=== PATIENT | male | born 1970 | race Caucasian/White ===

== ENCOUNTER → 2016-12-29 | Outpatient (CLI) | payer BC, OTHER | END | disposition home or self-care (01) | LOC: PETCFH 08:30 | PROVIDERS: ATTEND Internal Medicine | DX: R14.0 Abdominal distension (gaseous) (principal); R10.9 Unspecified abdominal pain | CPT/HCPCS: 78264; A9541 ==

== ENCOUNTER 2018-02-11 14:39 | Emergency (ER) | payer OTHER ==
[~2018-02-11] VITALS: Ht 170.2 cm; Wt 115.0 kg
[2018-02-11 14:57] VITALS: BP 146/94
[2018-02-11] MEDS ORDERED: METHOCARBAMOL 750 MG TABLET ONE (16:24)
[2018-02-11] MEDS ORDERED: KETOROLAC 30 MG/1 ML ONE (16:24)
[2018-02-11] MEDS ORDERED: METHOCARBAMOL 750 MG TABLET PO ONE (16:30)
[2018-02-11] MEDS ORDERED: KETOROLAC 30 MG/1 ML IM ONE (16:30)
== END 2018-02-11 17:15 | disposition home or self-care (01) ==
LOC: ED 16:45
DX: S13.4XXA Sprain of ligaments of cervical spine, initial encounter (principal); S23.3XXA Sprain of ligaments of thoracic spine, initial encounter; V12.4XXA Pedal cycle driver injured in collision with two- or three-wheeled motor vehicle in traffic accident, initial encounter; Y93.55 Activity, bike riding; Y92.89 Other specified places as the place of occurrence of the external cause; Y99.8 Other external cause status
CPT/HCPCS: 72050; 72072; 73030; 96372; 99284; J1885

== ENCOUNTER 2018-08-07 13:27 | Inpatient (IN) | payer OTHER ==
[~2018-08-07] VITALS: Ht 170.2 cm; Wt 106.3 kg
[2018-08-07 14:36] LABS: MEAN CORPUSCULAR HEMOGLOBIN 30.7 pg (27.5-34.5); MEAN CORPUSCULAR HGB CONC 33.5 g/dL (33.2-36.2); MEAN CORPUSCULAR VOLUME 91.8 fL (81-97); MEAN PLATELET VOLUME 9.7 fL (7.4-10.4); PLATELET COUNT 217 x10^3/uL (130-400); RED BLOOD COUNT 5.46 x10^6/uL (4.38-5.82); RED CELL DISTRIBUTION WIDTH 14.3 % (9.4-14.8)
[2018-08-07 14:46] LABS: ALBUMIN 3.3 g/dL (3.4-5.0); ANION GAP 4 mmol/L (5-15); CALCIUM 8.9 mg/dL (8.5-10.1); CHLORIDE 101 mmol/L (98-107)
[2018-08-07 14:48] LABS: ALANINE AMINOTRANSFERASE 25 U/L (12-78); ALKALINE PHOSPHATASE 95 U/L (45-117); CREATININE 1.32 mg/dL (0.7-1.3); TOTAL PROTEIN 8.3 g/dL (6.4-8.2)
[2018-08-07 15:05] LABS: BASOPHILS # (AUTO) 0.17 x10^3/uL (0-0.1); BASOPHILS % (AUTO) 1 % (0-1); EOSINOPHILS # (AUTO) 0.17 x10^3/uL (0-0.4); EOSINOPHILS % (AUTO) 1 % (1-7); LYMPHOCYTES # (AUTO) 2.06 x10^3/uL (1-3.4); LYMPHOCYTES % (AUTO) 10 % (22-44); MD SCAN; MONOCYTES # (AUTO) 1.32 x10^3/uL (0.2-0.8); MONOCYTES % (AUTO) 7 % (2-9); NEUTROPHILS # (AUTO) 16.45 x10^3/uL (1.8-6.8); NEUTROPHILS % (AUTO) 82 % (42-75)
[2018-08-07] MEDS ORDERED: SODIUM CHLORIDE FLUSH 10ML SYR IVF ONE (16:30)
--- NOTE | 2018-08-07 16:30 | NUR ---
patient is having really bad abdominal pain since sunday including nausea and vomiting. he has no history of this. he states the pain is left and right lower abdomen
[2018-08-07] MEDS ORDERED: OMNIPAQUE 350 MG/ML, 100ML BOTTLE ONE (17:05)
--- NOTE | 2018-08-07 17:06 | NUR ---
patient in ct scan.
--- NOTE | 2018-08-07 17:30 | NUR ---
patient awaiting er workup
--- NOTE | 2018-08-07 17:41 | NUR ---
patient pain is the same. patient in bed on monitor, awaiting ed workup
--- NOTE | 2018-08-07 17:51 | NUR ---
patient in bed. on beach lifeguard. patient awaiting admission/abx.
[2018-08-07] MEDS ORDERED: CIPROFLOXACIN/PMX 400MG/200ML 100 ML IVPB ONE (18:00)
[2018-08-07] MEDS ORDERED: METRONIDAZOLE PMX 500MG/100ML 100 ML IVPB ONE (18:00)
[2018-08-07] MEDS ORDERED: METRONIDAZOLE PMX 500MG/100ML 100 ML ONE (18:02)
[2018-08-07] MEDS ORDERED: CIPROFLOXACIN/PMX 400MG/200ML 200 ML ONE (18:02)
[2018-08-07] MEDS ORDERED: SODIUM CHLORIDE 0.9% 1,000 ML IV ONE (18:11)
--- NOTE | 2018-08-07 18:13 | NUR ---
giving patient abx. patient in bed on monitor.
[2018-08-07] MEDS ORDERED: ONDANSETRON 2MG/ML, 2ML ONE (18:28)
[2018-08-07] MEDS ORDERED: MORPHINE SULFATE 4 MG/ML, 1ML ONE (18:28)
[2018-08-07] MEDS ORDERED: ONDANSETRON 2MG/ML, 2ML IVPush PRN ×2 (18:30→19:00)
[2018-08-07] MEDS ORDERED: MORPHINE SULFATE 4 MG/ML, 1ML IVPush PRN (18:30)
[2018-08-07] MEDS ORDERED: SODIUM CHLORIDE FLUSH 10ML SYR IVF PRN (18:30)
[2018-08-07] MEDS ORDERED: CIPROFLOXACIN LACTATE 400 MG in DEXTROSE 5% 100 ML IV SCH (19:00)
[2018-08-07] MEDS ORDERED: morphine SULFATE 10 MG/ML, 1ML IVPush PRN (19:00)
[2018-08-07 20:07] VITALS: BP 118/75
[2018-08-07] MEDS: SODIUM CHLORIDE 0.9% 1,000 ML IV SCH (20:51)
[2018-08-08] MEDS: METRONIDAZOLE PMX 500MG/100ML 100 ML IV SCH ×3 (00:59→19:36)
[2018-08-08 02:00] VITALS: BP 108/62
[2018-08-08] MEDS: CIPROFLOXACIN/PMX 400MG/200ML 200 ML IV SCH ×2 (04:52→18:13)
[2018-08-08] MEDS: SODIUM CHLORIDE 0.9% 1,000 ML IV SCH ×2 (04:52→13:53)
[2018-08-08 06:03] LABS: ANION GAP 6 mmol/L (5-15); CALCIUM 8.2 mg/dL (8.5-10.1); CHLORIDE 106 mmol/L (98-107)
[2018-08-08 06:04] LABS: CREATININE 1.32 mg/dL (0.7-1.3)
[2018-08-08 06:06] LABS: MEAN CORPUSCULAR HGB CONC 32.4 g/dL (33.2-36.2); MEAN CORPUSCULAR VOLUME 92.6 fL (81-97); MEAN PLATELET VOLUME 9.7 fL (7.4-10.4); PLATELET COUNT 192 x10^3/uL (130-400); RED BLOOD COUNT 4.73 x10^6/uL (4.38-5.82); RED CELL DISTRIBUTION WIDTH 14.1 % (9.4-14.8)
[2018-08-08 06:25] LABS: BASOPHILS # (AUTO) 0.09 x10^3/uL (0-0.1); BASOPHILS % (AUTO) 1 % (0-1); EOSINOPHILS # (AUTO) 0.49 x10^3/uL (0-0.4); EOSINOPHILS % (AUTO) 3 % (1-7); LYMPHOCYTES # (AUTO) 3.31 x10^3/uL (1-3.4); LYMPHOCYTES % (AUTO) 18 % (22-44); MD SCAN; MONOCYTES % (AUTO) 8 % (2-9); NEUTROPHILS # (AUTO) 12.76 x10^3/uL (1.8-6.8); NEUTROPHILS % (AUTO) 71 % (42-75)
[2018-08-08 06:49] VITALS: BP 97/63
[2018-08-08 14:43] VITALS: BP 100/66
[2018-08-08 19:09] VITALS: BP 110/73
[2018-08-09] MEDS: SODIUM CHLORIDE 0.9% 1,000 ML IV SCH ×2 (00:01→10:28)
[2018-08-09 02:30] VITALS: BP 97/62
[2018-08-09] MEDS: METRONIDAZOLE PMX 500MG/100ML 100 ML IV SCH ×3 (03:43→19:32)
[2018-08-09] MEDS: CIPROFLOXACIN/PMX 400MG/200ML 200 ML IV SCH ×2 (06:26→18:02)
[2018-08-09 07:43] VITALS: BP 117/80
[2018-08-09 10:23] LABS: ANION GAP 5 mmol/L (5-15); BASOPHILS # (AUTO) 0.07 x10^3/uL (0-0.1); BASOPHILS % (AUTO) 1 % (0-1); CALCIUM 8.4 mg/dL (8.5-10.1); CHLORIDE 107 mmol/L (98-107); EOSINOPHILS # (AUTO) 0.52 x10^3/uL (0-0.4); EOSINOPHILS % (AUTO) 4 % (1-7); LYMPHOCYTES # (AUTO) 2.15 x10^3/uL (1-3.4); LYMPHOCYTES % (AUTO) 18 % (22-44); MD NO; MEAN CORPUSCULAR HEMOGLOBIN 30.4 pg (27.5-34.5); MEAN CORPUSCULAR HGB CONC 33.2 g/dL (33.2-36.2); MEAN CORPUSCULAR VOLUME 91.5 fL (81-97); MEAN PLATELET VOLUME 9.6 fL (7.4-10.4); MONOCYTES # (AUTO) 0.77 x10^3/uL (0.2-0.8); MONOCYTES % (AUTO) 7 % (2-9); NEUTROPHILS # (AUTO) 8.31 x10^3/uL (1.8-6.8); NEUTROPHILS % (AUTO) 70 % (42-75); PLATELET COUNT 240 x10^3/uL (130-400); RED BLOOD COUNT 5.18 x10^6/uL (4.38-5.82)
[2018-08-09 10:24] LABS: CREATININE 1.26 mg/dL (0.7-1.3)
[2018-08-09 14:56] VITALS: BP 131/82
[2018-08-09 19:50] VITALS: BP 102/68
[2018-08-10 03:00] VITALS: BP 90/61
[2018-08-10] MEDS: METRONIDAZOLE PMX 500MG/100ML 100 ML IV SCH ×2 (03:37→11:40)
[2018-08-10 04:39] LABS: BASOPHILS # (AUTO) 0.07 x10^3/uL (0-0.1); BASOPHILS % (AUTO) 1 % (0-1); EOSINOPHILS # (AUTO) 0.69 x10^3/uL (0-0.4); EOSINOPHILS % (AUTO) 6 % (1-7); LYMPHOCYTES # (AUTO) 2.95 x10^3/uL (1-3.4); LYMPHOCYTES % (AUTO) 25 % (22-44); MD NO; MEAN CORPUSCULAR HEMOGLOBIN 30.9 pg (27.5-34.5); MEAN CORPUSCULAR HGB CONC 33.7 g/dL (33.2-36.2); MEAN CORPUSCULAR VOLUME 91.7 fL (81-97); MEAN PLATELET VOLUME 9.2 fL (7.4-10.4); MONOCYTES # (AUTO) 1.14 x10^3/uL (0.2-0.8); MONOCYTES % (AUTO) 10 % (2-9); NEUTROPHILS # (AUTO) 7.16 x10^3/uL (1.8-6.8); NEUTROPHILS % (AUTO) 60 % (42-75); PLATELET COUNT 240 x10^3/uL (130-400); RED BLOOD COUNT 4.62 x10^6/uL (4.38-5.82)
[2018-08-10] MEDS: CIPROFLOXACIN/PMX 400MG/200ML 200 ML IV SCH (06:16)
[2018-08-10 08:34] VITALS: BP 94/59
[2018-08-10] MEDS ORDERED: CIPR750T PO (11:40)
[2018-08-10] MEDS ORDERED: ONDA4TAB7 PO (11:40)
[2018-08-10] MEDS ORDERED: METR500T PO (11:40)
== END 2018-08-10 12:45 | disposition home or self-care (01) | DRG 871 ==
LOC: ED 18:10 → EDIP 18:11 → ED 18:12 → 3NW 20:01 → DCLOUNGE 08-10 12:35
PROVIDERS: ADMIT Internal Medicine; ATTEND Internal Medicine
DX: A41.9 Sepsis, unspecified organism (principal); K65.9 Peritonitis, unspecified; K57.20 Diverticulitis of large intestine with perforation and abscess without bleeding; K52.9 Noninfective gastroenteritis and colitis, unspecified; N18.9 Chronic kidney disease, unspecified; Z80.0 Family history of malignant neoplasm of digestive organs
CPT/HCPCS: 36415; 74177; 80048; 80053; 83690; 85025; 96374; 96375; 99285; G0378; J0744; J2405; Q9967; J7030

== ENCOUNTER → 2018-09-26 | Outpatient (CLI) | payer BC, OTHER ==
[~2018-09-26] MED LIST: CIPR750T PO; METR500T PO; None per pt; ONDA4TAB7 PO
[2018-09-26 14:48] LABS: ALBUMIN 3.5 g/dL (3.4-5.0); ANION GAP 5 mmol/L (5-15); BASOPHILS # (AUTO) 0.09 x10^3/uL (0-0.1); BASOPHILS % (AUTO) 1 % (0-1); CALCIUM 8.6 mg/dL (8.5-10.1); CHLORIDE 108 mmol/L (98-107); EOSINOPHILS # (AUTO) 0.48 x10^3/uL (0-0.4); EOSINOPHILS % (AUTO) 5 % (1-7); LYMPHOCYTES # (AUTO) 2.96 x10^3/uL (1-3.4); LYMPHOCYTES % (AUTO) 30 % (22-44); MD NO; MEAN CORPUSCULAR HEMOGLOBIN 30.2 pg (27.5-34.5); MEAN CORPUSCULAR HGB CONC 32.4 g/dL (33.2-36.2); MEAN CORPUSCULAR VOLUME 93.1 fL (81-97); MEAN PLATELET VOLUME 9.5 fL (7.4-10.4); MONOCYTES # (AUTO) 0.83 x10^3/uL (0.2-0.8); MONOCYTES % (AUTO) 9 % (2-9); NEUTROPHILS % (AUTO) 55 % (42-75); PLATELET COUNT 225 x10^3/uL (130-400); RED BLOOD COUNT 5.43 x10^6/uL (4.38-5.82); RED CELL DISTRIBUTION WIDTH 14.9 % (9.4-14.8)
[2018-09-26 14:51] LABS: ALANINE AMINOTRANSFERASE 60 U/L (12-78); ALKALINE PHOSPHATASE 67 U/L (45-117); BILIRUBIN,TOTAL 0.6 mg/dL (0.2-1.0); TOTAL PROTEIN 7.4 g/dL (6.4-8.2)
== END | disposition home or self-care (01) ==
LOC: STAR 13:45
PROVIDERS: ATTEND Surgery
DX: Z01.818 Encounter for other preprocedural examination (principal); K57.92 Diverticulitis of intestine, part unspecified, without perforation or abscess without bleeding; I45.10 Unspecified right bundle-branch block; Z88.0 Allergy status to penicillin
CPT/HCPCS: 36415; 80053; 85025; 93005

== ENCOUNTER 2018-10-02 07:16 | Inpatient (IN) | payer BC, OTHER ==
[~2018-10-02] VITALS: Ht 170.2 cm; Wt 110.6 kg
[~2018-10-02 07:16] MED LIST changes: +BUPIVACAINE/PF 0.5% ONE; +EPINEPHRINE 1 MG/ML, 1ML ONE
[2018-10-02] MEDS ORDERED: LACTATED RINGERS 1,000 ML IV SCH (07:41)
[2018-10-02] MEDS ORDERED: MIDAZOLAM 1 MG/ML, 2ML ONE (08:29)
[2018-10-02] MEDS ORDERED: FENTANYL PF 250 MCG/5ML ONE (08:29)
[2018-10-02] MEDS ORDERED: ACETAMINOPHEN 500 MG TABLET ONE (08:43)
[2018-10-02] MEDS ORDERED: GABAPENTIN 300 MG CAPSULE ONE (08:44)
[2018-10-02] MEDS ORDERED: ACETAMINOPHEN 500 MG TABLET PO ONE (09:00)
[2018-10-02] MEDS ORDERED: GABAPENTIN 300 MG CAPSULE PO ONE (09:00)
[2018-10-02] MEDS ORDERED: DEXAMETHASONE 4 MG/ML, 1ML ONE (09:07)
[2018-10-02] MEDS ORDERED: CEFAZOLIN 1,000 MG ONE (09:07)
[2018-10-02] MEDS ORDERED: ROCURONIUM 10 MG/ML,10ML ONE (09:07)
[2018-10-02] MEDS ORDERED: PROPOFOL 10 MG/ML, 20ML ONE (09:07)
[2018-10-02] MEDS ORDERED: KETOROLAC 30 MG/1 ML ONE (09:07)
[2018-10-02] MEDS ORDERED: ONDANSETRON 2MG/ML, 2ML ONE (09:07)
[2018-10-02] MEDS ORDERED: SUCCINYLCHOLINE 20 MG/ML, 10ML ONE (09:07)
[2018-10-02] MEDS ORDERED: ONDANSETRON 2MG/ML, 2ML IVPush PRN (11:00)
[2018-10-02] MEDS ORDERED: KETOROLAC 30 MG/1 ML IV PRN (11:00)
[2018-10-02] MEDS ORDERED: MEPERIDINE/PF 25MG/0.5ML IVPush PRN (11:00)
[2018-10-02] MEDS ORDERED: hydrALAzine 20 MG/ML, 1ML IV PRN (11:00)
[2018-10-02] MEDS ORDERED: ALBUTEROL SULFATE 2.5 MG/3 ML NPPB PRN (11:00)
[2018-10-02] MEDS ORDERED: LABETALOL 5MG/ML, 20ML IV PRN (11:00)
[2018-10-02] MEDS ORDERED: OXYcodone 5 MG/5 ML ORAL.SOL UDC PO PRN (11:00)
[2018-10-02] MEDS ORDERED: METOCLOPRAMIDE 5 MG/ML, 2ML IV PRN (11:00)
[2018-10-02] MEDS ORDERED: PROMETHAZINE 25 MG/ML, 1ML IV PRN (11:00)
[2018-10-02] MEDS ORDERED: FENTANYL PF 100 MCG/2ML ONE ×2 (12:57→13:15)
[2018-10-02] MEDS: FENTANYL PF 100 MCG/2ML IV PRN ×2 (13:33→13:42)
[2018-10-02] MEDS ORDERED: HYDROmorphone 2 MG/ML, 1ML ONE (14:04)
[2018-10-02] MEDS ORDERED: OXYcodone 5 MG/5 ML ORAL.SOL UDC ONE (14:05)
[2018-10-02] MEDS: HYDROmorphone 1 MG/ML, 1ML INJ IV PRN ×3 (14:10→14:42)
[2018-10-02 15:45] VITALS: BP 126/80
[2018-10-02] MEDS ORDERED: OXYcodone IR 5MG TABLET PO PRN (16:00)
[2018-10-02] MEDS: KETOROLAC 30 MG/1 ML IV SCH ×2 (16:11→22:11)
[2018-10-02] MEDS: ACETAMINOPHEN 500 MG TABLET PO SCH ×2 (16:11→22:12)
[2018-10-02] MEDS: LACTATED RINGERS 1,000 ML IV SCH (16:12)
[2018-10-02] MEDS ORDERED: ONDANSETRON 2MG/ML, 2ML IV PRN (16:30)
[2018-10-02] MEDS ORDERED: MORPHINE SULFATE 4 MG/ML, 1ML IVPush PRN (17:30)
[2018-10-02] MEDS: OXYcodone IR 5MG TABLET PO PRN ×2 (19:25→23:36)
[2018-10-02 20:25] VITALS: BP 118/74
[2018-10-02 23:56] VITALS: BP 103/67
[2018-10-03 04:00] VITALS: BP 108/71
[2018-10-03] MEDS: ACETAMINOPHEN 500 MG TABLET PO SCH ×4 (04:25→22:14)
[2018-10-03] MEDS: KETOROLAC 30 MG/1 ML IV SCH ×4 (04:25→22:18)
[2018-10-03] MEDS: LACTATED RINGERS 1,000 ML IV SCH (04:51)
[2018-10-03] MEDS: OXYcodone IR 5MG TABLET PO PRN ×3 (04:51→15:21)
[2018-10-03 05:45] LABS: MEAN CORPUSCULAR HEMOGLOBIN 31.2 pg (27.5-34.5); MEAN CORPUSCULAR HGB CONC 32.8 g/dL (33.2-36.2); MEAN CORPUSCULAR VOLUME 95.1 fL (81-97); MEAN PLATELET VOLUME 9.9 fL (7.4-10.4); PLATELET COUNT 205 x10^3/uL (130-400); RED BLOOD COUNT 4.84 x10^6/uL (4.38-5.82); RED CELL DISTRIBUTION WIDTH 14.4 % (9.4-14.8)
[2018-10-03 05:55] LABS: ALBUMIN 3.2 g/dL (3.4-5.0); ANION GAP 5 mmol/L (5-15); CALCIUM 8.5 mg/dL (8.5-10.1); CHLORIDE 101 mmol/L (98-107)
[2018-10-03 05:59] LABS: ALANINE AMINOTRANSFERASE 33 U/L (12-78); ALKALINE PHOSPHATASE 70 U/L (45-117); BILIRUBIN,TOTAL 0.9 mg/dL (0.2-1.0); CREATININE 1.26 mg/dL (0.7-1.3); TOTAL PROTEIN 7.2 g/dL (6.4-8.2)
[2018-10-03 06:08] LABS: BASOPHILS # (AUTO) 0.08 x10^3/uL (0-0.1); BASOPHILS % (AUTO) 1 % (0-1); EOSINOPHILS # (AUTO) 0.03 x10^3/uL (0-0.4); EOSINOPHILS % (AUTO) 0 % (1-7); LYMPHOCYTES # (AUTO) 1.71 x10^3/uL (1-3.4); LYMPHOCYTES % (AUTO) 11 % (22-44); MD SCAN; MONOCYTES # (AUTO) 1.53 x10^3/uL (0.2-0.8); MONOCYTES % (AUTO) 10 % (2-9); NEUTROPHILS # (AUTO) 12.42 x10^3/uL (1.8-6.8); NEUTROPHILS % (AUTO) 79 % (42-75)
[2018-10-03 06:34] VITALS: BP 105/65
[2018-10-03] MEDS ORDERED: LACTATED RINGERS 1,000 ML IV SCH (08:30)
[2018-10-03] MEDS: ENOXAPARIN 40 MG/0.4 ML SQ SCH (08:39)
[2018-10-03 13:52] VITALS: BP 101/66
[2018-10-03 20:23] VITALS: BP 116/71
[2018-10-04 01:39] VITALS: BP 99/64
[2018-10-04] MEDS: KETOROLAC 30 MG/1 ML IV SCH ×4 (03:59→22:10)
[2018-10-04] MEDS: ACETAMINOPHEN 500 MG TABLET PO SCH ×4 (03:59→22:10)
[2018-10-04] MEDS: OXYcodone IR 5MG TABLET PO PRN ×4 (04:04→20:36)
[2018-10-04 05:43] LABS: BASOPHILS # (AUTO) 0.05 x10^3/uL (0-0.1); BASOPHILS % (AUTO) 0 % (0-1); EOSINOPHILS # (AUTO) 0.45 x10^3/uL (0-0.4); EOSINOPHILS % (AUTO) 3 % (1-7); LYMPHOCYTES # (AUTO) 3.56 x10^3/uL (1-3.4); LYMPHOCYTES % (AUTO) 25 % (22-44); MD NO; MEAN CORPUSCULAR HEMOGLOBIN 31.3 pg (27.5-34.5); MEAN CORPUSCULAR HGB CONC 33.2 g/dL (33.2-36.2); MEAN CORPUSCULAR VOLUME 94.2 fL (81-97); MEAN PLATELET VOLUME 9.3 fL (7.4-10.4); MONOCYTES # (AUTO) 1.33 x10^3/uL (0.2-0.8); MONOCYTES % (AUTO) 9 % (2-9); NEUTROPHILS # (AUTO) 9.05 x10^3/uL (1.8-6.8); NEUTROPHILS % (AUTO) 63 % (42-75); PLATELET COUNT 190 x10^3/uL (130-400); RED BLOOD COUNT 4.47 x10^6/uL (4.38-5.82); RED CELL DISTRIBUTION WIDTH 14.6 % (9.4-14.8)
[2018-10-04 05:53] LABS: ANION GAP 4 mmol/L (5-15); CALCIUM 8.5 mg/dL (8.5-10.1); CHLORIDE 104 mmol/L (98-107); CREATININE 1.25 mg/dL (0.7-1.3)
[2018-10-04 06:38] VITALS: BP 111/70
[2018-10-04] MEDS: ENOXAPARIN 40 MG/0.4 ML SQ SCH (09:56)
[2018-10-04 12:54] VITALS: BP 109/70
[2018-10-04 20:30] VITALS: BP 104/68
[2018-10-05 00:32] VITALS: BP 107/71
[2018-10-05] MEDS: KETOROLAC 30 MG/1 ML IV SCH (04:22)
[2018-10-05] MEDS: ACETAMINOPHEN 500 MG TABLET PO SCH (04:22)
[2018-10-05 08:30] VITALS: BP 115/70
[2018-10-05] MEDS ORDERED: OXYC5TAB3 PO (09:13)
[2018-10-05] MEDS ORDERED: OXYC5TAB2 PO (09:36)
== END 2018-10-05 10:00 | disposition home or self-care (01) | DRG 331 ==
LOC: ORIP 07:16 → 4NOR 15:39 → DCLOUNGE 10-05 09:53
PROVIDERS: ADMIT Surgery; ATTEND Surgery
PROC: 0DBN0ZZ Excision of Sigmoid Colon, Open Approach (ICD-10-PCS; 2018-10-02)
PROC: 8E0W3CZ Robotic Assisted Procedure of Trunk Region, Percutaneous Approach (ICD-10-PCS; principal; 2018-10-02 09:00)
DX: K57.32 Diverticulitis of large intestine without perforation or abscess without bleeding (principal); Z88.0 Allergy status to penicillin; Z91.018 Allergy to other foods
CPT/HCPCS: 36415; S0020; 80048; 80053; 85025; 86850; 86900; 88307; G0378; J0171; J0690; J1100; J1170; J1650; J1885; J2250; J2405; J2704; J3010; J0330; J2270; J7120

== ENCOUNTER → 2020-08-30 | Outpatient (CLI) | payer OTHER ==
[~2020-08-30] MED LIST changes: -BUPIVACAINE/PF 0.5% ONE; -EPINEPHRINE 1 MG/ML, 1ML ONE; +OXYC5TAB2 PO; +OXYC5TAB98 PO
== END | disposition home or self-care (01) ==
LOC: CFH 13:26
PROVIDERS: ATTEND Physician Assistant Medical
DX: M79.89 Other specified soft tissue disorders (principal); M79.604 Pain in right leg; R60.9 Edema, unspecified